=== PATIENT | female | born 1950 | race Caucasian/White ===

== ENCOUNTER 2024-07-06 08:54 | Day surgery (SDC) | payer MEDICARE, OTHER ==
[~2024-07-06] VITALS: Ht 177.8 cm; Wt 90.7 kg
[~2024-07-06 08:54] MED LIST: AMLO1TAB24 PO; BIMA01SOL OD; BRIN8DRO OD; EZET10TA21 PO; HYDR12.55 PO; IRBE300T25 PO; NEBI5TAB2 PO; OMEG10002 PO; PHENYLEPHRINE 10% OPHTH SOL 5ML OD PRN
[2024-07-06] MEDS: LIDOCAINE 3.5 % 1ML OPHTH TOPICAL GEL OU ONE (12:28)
[2024-07-06] MEDS: OFLOXACIN 0.3 % (OCUFLOX) OPTH SOL 5ML OD ONE (12:28)
[2024-07-06] MEDS: TROPICAMIDE 1% OPHTH SOLN 15ML OD SCH (12:29)
[2024-07-06] MEDS: PHENYLEPHRINE 2.5% OPHTH SOL 2ML OD SCH (12:29)
[2024-07-06] MEDS: ATROPINE SULFATE 1% OPHTH SOLN 2ML BTL OD SCH (12:29)
[2024-07-06] MEDS ORDERED: MIDAZOLAM INJ 2MG/2ML VIAL As Ordered ONE (12:41)
[2024-07-06] MEDS ORDERED: fentaNYL 100 MCG/2 ML INJECTION As Ordered ONE (12:41)
[2024-07-06] MEDS: SCOPOLAMINE 1MG TRANSDERMAL PATCH TOP ONE (12:42)
[2024-07-06] MEDS ORDERED: propofoL 200 MG/20 ML VIAL As Ordered ONE (13:36)
[2024-07-06] MEDS: DUOVISC (0.50ML VISCOAT/0.85ML PROVISC) OPHTH KIT As Ordered ONE (13:49)
[2024-07-06] MEDS: LIDOCAINE 1% SDV 5ML VIAL As Ordered ONE (13:49)
[2024-07-06] MEDS: BSS IRRIG/VANCO(10MG)/TOBRA(5MG)/EPINEPH(1:1000-0.5CC)500ML BAG-ORONLY As Ordered ONE (13:49)
[2024-07-06] MEDS: CEFUROXIME 1MG/0.1ML INTRACAMERAL INJ As Ordered ONE (13:49)
[2024-07-06 14:00] VITALS: BP 148/67; TEMP 96.9; O2SAT 99
== END 2024-07-06 14:24 | disposition home or self-care (01) ==
LOC: M SDC 08:54
PROVIDERS: ATTEND Ophthalmology
DX: H25.9 Unspecified age-related cataract (principal); H40.1111 Primary open-angle glaucoma, right eye, mild stage; Z79.899 Other long term (current) drug therapy
CPT/HCPCS: 65772; 66991; 92015; C1783; J0697; J2250; J3010; V2632